=== PATIENT | female | born 1960 | race Caucasian/White ===

== ENCOUNTER 2020-05-06 09:41 | Day surgery (SDC) | payer BC ==
[~2020-05-06 09:41] MED LIST: Cefuroxime 10 MG/ML SYRINGE EYELF SCH; Lidocaine 1% PF 2 ML SDV INJECT SCH; Pilocarpine 4% Ophth Soln 15 ML Bot EYELF SCH; Polymyxin B/Trimethoprim 10 ML Bottle EYELF SCH
[2020-05-06] MEDS ORDERED: Propofol 200 MG/20 ML SDV ONE (09:57)
[2020-05-06] MEDS ORDERED: Midazolam 1 MG/ML 2 ML SDV ONE ×2 (09:58→11:09)
[2020-05-06] MEDS: Ofloxacin 0.3% Ophth Soln 5 ML Bottle EYELF SCH ×2 (10:26→11:10)
[2020-05-06] MEDS ORDERED: Sodium Chloride 0.9% 10 ML Syringe FLUSH PRN (10:27)
[2020-05-06] MEDS ORDERED: Lactated Ringers 1,000 ML IV SCH (10:30)
[2020-05-06] MEDS: Brimonidine 0.2% Ophth Soln 5 ML Bottle EYELF SCH ×3 (10:32→12:06)
[2020-05-06] MEDS: Phenylephrine 2.5% Ophth Soln 15 ML Bot EYELF SCH ×5 (10:37→11:45)
[2020-05-06] MEDS: Tropicamide 1% Ophth Soln 15 ML Bottle EYELF SCH ×4 (10:45→11:28)
--- NOTE | 2020-05-06 11:08 | PCM.PREANE ---
Preanesthetic Assessment - Procedure Proposed Procedure: Left Eye Cataract Extraction - Anesthesia/Transfusion/Family Hx Anesthesia History: Prior Anesthesia Without Reaction Family History of Anesthesia Reaction: No - Review of Systems General: No Symptoms Pulmonary: No Symptoms Cardiovascular: No Symptoms Gastrointestinal: No Symptoms Neurological: Headache (Migraines), Other (Neck and Back Surgery) Other: Reports: Anxiety (Very anxious regarding procedure. Anxiolytic preoperatively. IV in place. ) - Physical Assessment NPO Status Date: 05/05/20 Vital Signs: Last Vital Signs Temp 36.7 C 05/06/20 10:00 Pulse 77 05/06/20 10:00 Resp 16 05/06/20 10:00 BP 116/86 05/06/20 10:00 Pulse Ox 97 05/06/20 10:00 Height: 1.63 m Weight: 63.503 kg ASA Class: 2 Mental Status: Alert & Oriented x3 Airway Class: Mallampati = 2 Dentition: Reports: Normal Dentition Thyro-Mental Finger Breadths: 2 Mouth Opening Finger Breadths: 3 ROM/Head Extension: Full Lungs: Clear to Auscultation, Normal Respiratory Effort Cardiovascular: Regular Rate, Regular Rhythm - Allergies Allergies/Adverse Reactions: Allergies Allergy/AdvReac Type Severity Reaction Status Date / Time Sulfa (Sulfonamide AdvReac Mild Vomiting Verified 05/05/20 12:52 Antibiotics) - Anesthesia Plan Pre-Op Medication Ordered: Anxiolytic - Acknowledgements Anesthesia Type Planned: MAC Pt an Appropriate Candidate for the Planned Anesthesia: Yes Alternatives and Risks of Anesthesia Discussed w Pt/Guardian: Yes Pt/Guardian Understands and Agrees with Anesthesia Plan: Yes PreAnesthesia Questionnaire - HOME MEDS Home Medications: Home Meds Carboxymethylcellulose Sodium [Artificial Tears] 1 drop EYEBOTH ASDIRECTED PRN 05/05/20 [History] Cholecalciferol (Vitamin D3) [Vitamin D3] 5,000 unit PO DAILY 05/05/20 [History] Cyanocobalamin (Vitamin B12) [Vitamin B12] 1,000 mcg PO DAILY 05/05/20 [History] Digestive 8/L.acidoph/Pectin [Digestive Enzymes Tablet] 1 tab PO DAILY 05/05/20 [History] Herbal Drugs [Super Energy] 1 tab PO DAILY 05/05/20 [History] LORazepam [Ativan] 0.5 mg PO DAILY PRN 05/05/20 [History] Lutein 20 mg PO DAILY 05/05/20 [History] Melatonin 1 mg PO BEDTIME 05/05/20 [History] Rosuvastatin Calcium 20 mg PO DAILY 05/05/20 [History] SUMAtriptan succinate [Imitrex] 100 mg PO ASDIRECTED PRN 05/05/20 [History] Ubidecarenone [Coq-10] 100 mg PO DAILY 05/05/20 [History] buPROPion HCL [Wellbutrin Xl] 300 mg PO DAILY 05/05/20 [History] - CURRENT (IN HOUSE) MEDS Current Meds: Current Medications Brimonidine Tartrate (Alphagan 0.2% Ophth Soln) 0 ml EYELF ASDIRECTED SAIGE Stop: 05/06/20 18:00 Last Admin: 05/06/20 10:32 Dose: 1 drop Documented by: Cefuroxime Sodium (Zinacef) 0 mg EYELF ASDIRECTED SAIGE Stop: 05/06/20 18:00 Lactated Ringer's (Ringers, Lactated) 1,000 mls @ 125 mls/hr IV ASDIRECTED SAIGE Stop: 05/06/20 18:00 Last Admin: 05/06/20 10:20 Dose: 125 mls/hr Documented by: Lidocaine HCl (Xylocaine-Mpf 1%) 0 ml INJECT ASDIRECTED SAIGE Stop: 05/06/20 18:00 Ofloxacin (Ocuflox 0.3% Ophth Soln) 0 ml EYELF ASDIRECTED SAIGE Stop: 05/06/20 18:00 Last Admin: 05/06/20 10:26 Dose: 1 drop Documented by: Phenylephrine HCl (Sathya-Synephrine 2.5% Ophth Soln) 0 ml EYELF ASDIRECTED SAIGE Stop: 05/06/20 18:00 Last Admin: 05/06/20 11:00 Dose: 1 drop Documented by: Pilocarpine HCl (Pilocar 4% Ophth Soln) 0 ml EYELF ASDIRECTED SAIGE Stop: 05/06/20 18:00 Sodium Chloride (Saline Flush) 10 ml FLUSH ASDIRECTED PRN PRN Reason: Keep Vein Open Stop: 05/06/20 18:00 Tetracaine HCl (Tetracaine 0.5% Steri-Unit Zulay) 0 ml EYEBOTH ASDIRECTED SAIGE Stop: 05/06/20 18:00 Tropicamide (Mydriacyl 1% Ophth Soln) 0 ml EYELF ASDIRECTED SAIGE Stop: 05/06/20 18:00 Last Admin: 05/06/20 10:55 Dose: 1 drop Documented by: Discontinued Medications Midazolam HCl (Versed 1 Mg/Ml) Confirm Administered Dose 2 mg .ROUTE .STK-MED ONE Stop: 05/06/20 09:59 Propofol (Diprivan 20 Ml) Confirm Administered Dose 200 mg .ROUTE .STK-MED ONE Stop: 05/06/20 09:58
[2020-05-06] MEDS: Tetracaine HCl/PF 0.5% 4 ML Bottle EYEBOTH SCH ×2 (11:38→11:51)
--- NOTE | 2020-05-06 12:11 | PCM48HPAN ---
Post Anesthesia Note - EVALUATION WITHIN 48HRS OF ANESTHETIC Vital Signs in Normal Range: Yes Patient Participated in Evaluation: Yes Respiratory Function Stable: Yes Airway Patent: Yes Cardiovascular Function Stable: Yes Hydration Status Stable: Yes Pain Control Satisfactory: Yes Nausea and Vomiting Control Satisfactory: Yes Mental Status Recovered: Yes Vital Signs: Last Vital Signs Temp 36.7 C 05/06/20 10:00 Pulse 77 05/06/20 10:00 Resp 16 05/06/20 10:00 BP 116/86 05/06/20 10:00 Pulse Ox 97 05/06/20 10:00
== END 2020-05-06 12:25 | disposition home or self-care (01) ==
LOC: JD.SDS 09:41
PROVIDERS: ATTEND Ophthalmology
DX: H25.813 Combined forms of age-related cataract, bilateral (principal); H16.223 Keratoconjunctivitis sicca, not specified as Sjogren's, bilateral; H35.373 Puckering of macula, bilateral; H35.40 Unspecified peripheral retinal degeneration; H02.836 Dermatochalasis of left eye, unspecified eyelid; H02.833 Dermatochalasis of right eye, unspecified eyelid; E78.00 Pure hypercholesterolemia, unspecified; Z88.2 Allergy status to sulfonamides; Z79.899 Other long term (current) drug therapy; Z98.890 Other specified postprocedural states
CPT/HCPCS: 66984; C1780; J0697; J2250; J7120; A9270-GY; J2704

== ENCOUNTER 2020-06-10 04:11 | Emergency (ER) | payer BC ==
--- NOTE | 2020-06-10 05:12 | EDM.PDOC ---
ED HPI GENERAL MEDICAL PROBLEM - General Chief Complaint: Lower Extremity Injury/Pain Stated Complaint: LEG PAIN Time Seen by Provider: 06/10/20 04:25 Source of Information: Reports: Patient, Family () History Limitations: Reports: No Limitations - History of Present Illness INITIAL COMMENTS - FREE TEXT/NARRATIVE: Mrs. Hall is a 59-year-old woman who now presents to the ED with left leg pain that developed on , 06/03/2020. She states that the pain is always her left thigh and calf. She denies having pain in her back, and states that her left lower extremity pain is better if she flexes her leg. She states that she saw her PCP about it that same day, and was prescribed Flexeril and tramadol. She states that she took the tramadol for 2 days, then switched to Advil. She took 1 additional tramadol last night. The patient states an MRI of her spine in October demonstrated spinal stenosis, although she is unable to elaborate on the specifics. She states that she saw her Neurosurgeon yesterday, 06/09/2020, and that he told her that he would initiate the process involved for her to undergo surgery in about 6 weeks. Because of this, he did not want to prescribe steroids. The patient states that he did not prescribe any different medications. Here in the ED this morning, the patient's initial BP is found to be mildly elevated at 146/101, with mild tachycardia of 106 bpm and slight tachypnea of 22 rpm. She is afebrile, saturating 99% on room air. She is frequently tearful, and appears to be quite anxious. Other than her left lower extremity pain, the patient denies having a recent fever, chills, sore throat, ear pain, nasal or sinus congestion, cough, dyspnea, chest pain, palpitations, nausea, vomiting, constipation, diarrhea, abdominal pain, urinary symptoms, recent weight gain or weight loss, recent bloody bowel movements or black bowel movements, recent joint aches, headaches, or rashes. The patient's PCP is YAYA Abarca. Her Neurosurgeon is Dr. Gagandeep Franklin. Left Leg Pain Score (Numeric/FACES): 10 - Related Data Allergies Allergy/AdvReac Type Severity Reaction Status Date / Time Sulfa (Sulfonamide AdvReac Mild Vomiting Verified 06/10/20 04:23 Antibiotics) Home Meds: Home Meds Carboxymethylcellulose Sodium [Artificial Tears] 1 drop EYEBOTH ASDIRECTED PRN 05/05/20 [History] Cholecalciferol (Vitamin D3) [Vitamin D3] 5,000 unit PO DAILY 05/05/20 [History] Cyanocobalamin (Vitamin B12) [Vitamin B12] 1,000 mcg PO DAILY 05/05/20 [History] Digestive 8/L.acidoph/Pectin [Digestive Enzymes Tablet] 1 tab PO DAILY 05/05/20 [History] Herbal Drugs [Super Energy] 1 tab PO DAILY 05/05/20 [History] LORazepam [Ativan] 0.5 mg PO DAILY PRN 05/05/20 [History] Lutein 20 mg PO DAILY 05/05/20 [History] Melatonin 1 mg PO BEDTIME 05/05/20 [History] Rosuvastatin Calcium 20 mg PO DAILY 05/05/20 [History] SUMAtriptan succinate [Imitrex] 100 mg PO ASDIRECTED PRN 05/05/20 [History] Ubidecarenone [Coq-10] 100 mg PO DAILY 05/05/20 [History] buPROPion HCL [Wellbutrin Xl] 300 mg PO DAILY 05/05/20 [History] Past Medical History Cardiovascular History: Reports: High Cholesterol Gastrointestinal History: Reports: GERD (untreated) Genitourinary History: Reports: Urinary Incontinence (stress incontinence) Musculoskeletal History: Reports: Osteoarthritis Psychiatric History: Reports: Anxiety - Infectious Disease History Infectious Disease History: Reports: Chicken Pox - Past Surgical History HEENT Surgical History: Reports: Cataract Surgery (bilateral), Naso-Sinus Surgery GI Surgical History: Reports: Appendectomy, Cholecystectomy (2009) Female Surgical History: Reports: Endometrial Ablation, Tubal Ligation Neurological Surgical History: Reports: C-Spine (ACDF x 2), Lumbar Spine (unclear what prior surgery) Musculoskeletal Surgical History: Reports: Shoulder Surgery (right, arthroscopic) Social & Family History - Tobacco Use Tobacco Use Status *Q: Never Tobacco User Second Hand Smoke Exposure: No - Caffeine Use Caffeine Use: Reports: Coffee - Alcohol Use Alcohol Use History: Yes Alcohol Use Frequency: Rarely - Recreational Drug Use Recreational Drug Use: No - Living Situation & Occupation Living situation: Reports: , with Spouse 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 Neurological: Reports: Headache (chronic) ED EXAM, GENERAL - Physical Exam Exam: See Below Exam Limited By: No Limitations General Appearance: Alert, WD/WN, Other (Frequently tearful) Eye Exam: Bilateral Eye: EOMI, Normal Inspection Ears: Normal External Exam, Hearing Grossly Normal Nose: Normal Inspection Throat/Mouth: Normal Inspection, Normal Lips, Normal Voice, No Airway Compromise Head: Atraumatic, Normocephalic Neck: Normal Inspection, Full Range of Motion Respiratory/Chest: No Respiratory Distress, Lungs Clear, Normal Breath Sounds, No Accessory Muscle Use Cardiovascular: Normal Peripheral Pulses, Regular Rate, Rhythm, No Edema, No Gallop, No JVD, No Murmur, No Rub Peripheral Pulses: 3+: Radial (L), Radial (R), Femoral (L), Femoral (R), Popliteal (L), Popliteal (R), Posterior Tibial (L), Posterior Tibial (R), Zak salis Pedis (L), Dorsalis Pedis (R) GI/Abdominal: Normal Bowel Sounds, Soft, Non-Tender, No Organomegaly, No Distention, No Abnormal Bruit, No Mass Back Exam: Full Range of Motion, Other (Well-healed midline lumbar scar. No other visible abnormalities, such as swelling, erythema, ecchymosis, or abrasion. No tenderness to palpation of the lumbar spinous processes or lumbar paraspinous muscles. The patient is able to flex her spine to about 75 degrees, and extend to about 30 degrees) Extremities: Normal Inspection, Normal Range of Motion, No Pedal Edema, Normal Capillary Refill Neurological: Alert, Oriented, Normal Cognition, No Motor/Sensory Deficits Psychiatric: Anxious, Tearful Skin Exam: Warm, Dry, Intact, Normal Color, No Rash Course - Vital Signs Last Recorded V/S: Last Vital Signs Temp 36.3 C 06/10/20 04:20 Pulse 106 H 06/10/20 04:20 Resp 22 H 06/10/20 04:20 BP 146/101 H 06/10/20 04:20 Pulse Ox 99 06/10/20 04:20 - Re-Assessments/Exams Free Text/Narrative Re-Assessment/Exam: 06/10/20 05:07 As above, the patient developed left thigh and leg pain 1 week ago, saw her PCP that same day and was prescribed Flexeril and tramadol, along with OTC ibuprofen, which she states has not helped. She saw Dr. Franklin yesterday, who told her he would begin the process for her to have surgery in about 6 weeks, but the patient is insisting at this time that she cannot wait that long, and wants to have surgery immediately. She is refusing pain medication both here in the ED, as well as a stronger prescription for home. 06/10/20 05:20 Case discussed with Carlos at [facility] at 05:08. Case then discussed with Dr. Franklin, Neurosurgeon at [facility], at 05:15. Stated that the patient has significant spinal stenosis, and is likely miserable, but that there is nothing that he can do for her from our ED, and he acknowledged that she would not be appropriate to transfer to their ED, however, he stated that if the patient were to show up in their ED, that he would be able to admit her and perhaps perform surgery sooner than later. Carlos noted that they do not have any beds at this time, therefore the patient may need to wait in their ED until a bed becomes available if she chooses that route. Departure - Departure Time of Disposition: 05:26 Disposition: Home, Self-Care 01 Condition: Good Clinical Impression: Left lumbar radiculopathy - Discharge Information *PRESCRIPTION DRUG MONITORING PROGRAM REVIEWED*: Not Applicable *COPY OF PRESCRIPTION DRUG MONITORING REPORT IN PATIENT ANDRES: Not Applicable Referrals: Rissa Roberts PA-C [Primary Care Provider] - Gagandeep Franklin MD [Ordering Only Provider] - Forms: ED Department Discharge Additional Instructions: You were seen in the emergency room for persistent left lower extremity pain for the past week, thought due to spinal stenosis. Your case was discussed with the Neurosurgeon Dr. Gagandeep Franklin, who recommended that you go to [facility]'s emergency room, where you may be able to be admitted. Until that time, we recommend that you continue to take your current medications as prescribed. If any other problems, please do not hesitate to return to the ER. Sepsis Event Note (ED) - Evaluation Sepsis Screening Result: No Definite Risk
== END 2020-06-10 05:35 | disposition home or self-care (01) ==
LOC: JD.ED 04:11
DX: M54.16 Radiculopathy, lumbar region (principal); E78.00 Pure hypercholesterolemia, unspecified; Z88.2 Allergy status to sulfonamides; Z79.899 Other long term (current) drug therapy
CPT/HCPCS: 99283

== ENCOUNTER 2022-02-02 07:43 | Emergency (ER) | payer BC | END 2022-02-02 09:24 | disposition home or self-care (01) | LOC: JD.ED 07:43 | DX: S86.912A Strain of unspecified muscle(s) and tendon(s) at lower leg level, left leg, initial encounter (principal); E78.00 Pure hypercholesterolemia, unspecified; M19.90 Unspecified osteoarthritis, unspecified site; Z88.2 Allergy status to sulfonamides; Z79.899 Other long term (current) drug therapy; X50.0XXA Overexertion from strenuous movement or load, initial encounter | CPT/HCPCS: 99283 ==

== ENCOUNTER 2024-09-20 04:20 | Emergency (ER) | payer BC, MEDICARE ==
[2024-09-20] MEDS ORDERED: Sodium Chloride 0.9% 10 ML Syringe FLUSH PRN (04:47)
[2024-09-20] MEDS: diphenhydrAMINE 50 MG/ML SDV IVPUSH ONE (05:24)
[2024-09-20 05:36] LABS: BASOPHILS ABSOLUTE AUTO 0.1 K/mm3 (0.0-0.2); BASOPHILS PERCENT AUTO 1.3 % (0.0-1.0); EOSINOPHILS ABSOLUTE AUTO 0.2 K/mm3 (0.0-0.4); EOSINOPHILS PERCENT AUTO 4.1 % (0.0-6.0); IMMATURE GRAN ABSOLUTE AUTO 0.01 K/mm3 (0.00-0.05); IMMATURE GRAN PERCENT AUTO 0.2 % (0.0-0.4); LYMPHOCYTES ABSOLUTE AUTO 0.9 K/mm3 (1.0-4.8); LYMPHOCYTES PERCENT AUTO 17.3 % (24.0-44.0); MEAN PLATELET VOLUME 10.1 fl (9.4-12.3); MONOCYTES ABSOLUTE AUTO 0.5 K/mm3 (0.0-0.8); MONOCYTES PERCENT AUTO 9.8 % (0.0-8.0); NEUTROPHILS ABSOLUTE AUTO 3.6 K/mm3 (1.8-7.7); NEUTROPHILS PERCENT AUTO 67.3 % (41.0-71.0); NRBC ABSOLUTE 0.00 (0.00-0.02); NRBC PERCENT 0.0 % (0.0-0.2); PLATELET COUNT,PLT 235 K/mm3 (150-400); RED BLOOD CELL COUNT 4.18 M/mm3 (4.10-5.30); WHITE BLOOD CELL COUNT,WBC 5.33 K/mm3 (3.9-11.3)
[2024-09-20 05:44] LABS: A/G RATIO 1.0 (1-2); ALANINE AMINOTRANSFERASE,ALT 31.0 U/L (14-59); ASPARTATE AMNIOTRANSFERASE,AST 25.0 U/L (15-37); BILIRUBIN TOTAL 1.5 mg/dL (0.2-1.0); BLOOD UREA NITROGEN,BUN 17.0 mg/dL (7-18); CARBON DIOXIDE,CO2 28.0 mEq/L (21-32); CHLORIDE,CL 105.0 mEq/L (98-107); CREATININE 0.7 mg/dL (0.55-1.02); EST CRCL DRUG DOSING (CG) 66.28 mL/min; ESTIMATED GFR 96.0 mL/min (>60); GLUCOSE RANDOM 95.0 mg/dL (70-99); PROTEIN TOTAL,TP 6.8 g/dl (6.4-8.2); SODIUM,NA 141.0 mEq/L (136-145)
[2024-09-20 05:54] LABS: POTASSIUM,K 3.7 mEq/L (3.5-5.1)
== END 2024-09-20 06:40 | disposition home or self-care (01) ==
LOC: JD.ED 04:20
DX: R51.9 Headache, unspecified (principal); R11.2 Nausea with vomiting, unspecified; E78.00 Pure hypercholesterolemia, unspecified; M19.90 Unspecified osteoarthritis, unspecified site; Z88.2 Allergy status to sulfonamides; Z88.8 Allergy status to other drugs, medicaments and biological substances; Z79.899 Other long term (current) drug therapy; Z90.49 Acquired absence of other specified parts of digestive tract
CPT/HCPCS: 36415; 70450; 80053; 83735; 85025; 93005; 96361; 96374; 96375; 99284; A9270; J1200; J2765; J7030; 93010; 99283